=== PATIENT | female | born 1965 | race Caucasian/White ===

== ENCOUNTER 2016-08-26 22:00 | Emergency (ER) | payer SELFPAY ==
[2016-08-26 22:38] VITALS: BP 129/80
[2016-08-26 23:09] LABS: ABSOLUTE BASOPHILS # (AUTO) 0.1 10^3/uL (0.0-0.2); ABSOLUTE EOSINOPHILS # (AUTO) 0.1 10^3/uL (0.0-0.6); ABSOLUTE LYMPHOCYTES (AUTO) 2.2 10^3/uL (0.5-4.7); ABSOLUTE MONOCYTES (AUTO) 0.6 10^3/uL (0.1-1.4); ABSOLUTE NEUT (AUTO) 8.1 10^3/uL (1.7-8.2); BASOPHILS % (AUTO) 0.9 % (0-2); HEMATOCRIT 44.8 % (36.0-47.0); HEMOGLOBIN 15.3 g/dL (12.0-15.5); HGB HCT DIFFERENCE 1.1; LYMPHOCYTES % (AUTO) 19.9 % (13-45); MEAN CORPUSCULAR HEMOGLOBIN 31.3 pg (27.0-33.4); MEAN CORPUSCULAR HGB CONC 34.2 g/dL (32.0-36.0); MEAN CORPUSCULAR VOLUME 91 fl (80-97); MONOCYTES % (AUTO) 5.5 % (3-13); RED CELL DISTRIBUTION WIDTH 12.8 % (11.5-14.0); SEGMENTED NEUTROPHILS % (AUTO) 72.7 % (42-78); WHITE BLOOD COUNT 11.2 10^3/uL (4.0-10.5)
[2016-08-26 23:23] LABS: ALANINE AMINOTRANSFERASE 30 U/L (9-52); ALBUMIN 3.5 g/dL (3.5-5.0); ALKALINE PHOSPHATASE 91 U/L (38-126); ANION GAP 11 (5-19); ASPARTATE AMINO TRANSFERASE 12 U/L (14-36); BILIRUBIN,DIRECT 0.1 mg/dL (0.0-0.4); BILIRUBIN,TOTAL 0.3 mg/dL (0.2-1.3); BLOOD UREA NITROGEN 23 mg/dL (7-20); CALCIUM 9.1 mg/dL (8.4-10.2); CARBON DIOXIDE 32 mmol/L (22-30); CHLORIDE 88 mmol/L (98-107); CREATININE RESULT 0.87 mg/dL (0.52-1.25); POTASSIUM 5.1 mmol/L (3.6-5.0); SODIUM 131.3 mmol/L (137-145); TOTAL PROTEIN 6.4 g/dL (6.3-8.2)
[2016-08-26 23:33] LABS: GLUCOSE 473 mg/dL (75-110)
[2016-08-26] MEDS ORDERED: NORMAL SALINE 1000 ML 1,000 ML IV PRN (23:50)
== END 2016-08-27 03:20 | disposition left against medical advice (07) ==
LOC: ER 22:00
DX: Z53.21 Procedure and treatment not carried out due to patient leaving prior to being seen by health care provider (principal)
CPT/HCPCS: 36415; 80053; 85025

== ENCOUNTER 2016-10-17 10:03 | Emergency (ER) | payer SELFPAY ==
[2016-10-17] MEDS ORDERED: PREDNISONE 20 MG TABLET PO ONE (10:42)
--- NOTE | 2016-10-17 11:00 | ER Document Report ---
ED General - General Mode of Arrival: Wheelchair Information source: Patient TRAVEL OUTSIDE OF THE [place] IN LAST 30 DAYS: No - HPI Onset: Other - REFER to HPI note <MESHA FORTE - Last Filed: 10/17/16 15:30> <[email or web address] - Last Filed: 10/18/16 14:46> - General Chief Complaint: Nausea/Vomiting Stated Complaint: VOMITING Notes: Patient is a 51 year old female presenting to the emergency department for nausea, vomiting and bilateral ulcers to her feet. Patient had a partial amputation to her right toe 6 weeks ago which was done by Dr. Rossy Fabian. Patient had this done at [facility]. Patient has had these ulcers onset about 2 months ago. Patient has type 1 diabetes mellitus. Patient' s last A1C was 11. Patient states she is having difficulty with insulin resistance. Patient sees Dr. Luke for her diabetes. Patient states she has been told by Dr. Fabian that she needed to eventually needs to have surgery on the rest of her ulcers. Patient has no known allergies. (MESHA FORTE) - Related Data Allergies/Adverse Reactions: No Known Allergies Allergy (Verified 10/17/16 10:26) Past Medical History - General Information source: Patient - Social History Smoking Status: Current Some Day Smoker Chew tobacco use (# tins/day): No Frequency of alcohol use: None Drug Abuse: None Family History: DM, Hypertension Patient has suicidal ideation: No Patient has homicidal ideation: No - Past Medical History Cardiac Medical History: Reports: Hx Hypertension Endocrine Medical History: Reports: Hx Diabetes Mellitus Type 2 GI Medical History: Reports: Hx Gastroesophageal Reflux Disease Skin Medical History: Reports Hx Cellulitis, Reports Hx MRSA Psychiatric Medical History: Reports: Hx Depression Past Surgical History: Reports: Hx Section, Hx Cholecystectomy, Hx Hysterectomy - BLT 20 years ago, Hx Tubal Ligation - Immunizations Immunizations up to date: Yes Hx Diphtheria, Pertussis, Tetanus Vaccination: Yes <MESHA FORTE - Last Filed: 10/17/16 15:30> Review of Systems - Review of Systems Constitutional: No symptoms reported EENT: No symptoms reported Cardiovascular: No symptoms reported Respiratory: No symptoms reported Gastrointestinal: See HPI, Nausea, Vomiting Genitourinary: No symptoms reported Female Genitourinary: No symptoms reported Musculoskeletal: No symptoms reported Skin: See HPI Hematologic/Lymphatic: No symptoms reported Neurological/Psychological: No symptoms reported -: Yes All other systems reviewed and negative <MESHA FORTE - Last Filed: 10/17/16 15:30> Physical Exam - Vital signs Interpretation: Normal - General General appearance: Appears well, Alert In distress: Mild - HEENT Head: Normocephalic, Atraumatic Eyes: Normal Pupils: PERRL Mucous membranes: Moist - Respiratory Respiratory status: No respiratory distress Chest status: Nontender Breath sounds: Normal Chest palpation: Normal - Cardiovascular Rhythm: Regular Heart sounds: Normal auscultation Murmur: No - Abdominal Inspection: Normal Distension: No distension Bowel sounds: Normal Tenderness: Nontender Organomegaly: No organomegaly - Extremities General lower extremity: Other - multiple ulcerations and open sores to the bilateral toes, no sign of cellulitis, necrosis, or crepitis - Neurological Neuro grossly intact: Yes Cognition: Normal Orientation: AAOx4 [place] Coma Scale Eye Opening: Spontaneous [place] Coma Scale Verbal: Oriented [place] Coma Scale Motor: Obeys Commands [place] Coma Scale Total: 15 Speech: Normal Sensory: Normal - Psychological Associated symptoms: Normal affect, Normal mood - Skin Skin Temperature: Warm Skin Moisture: Dry <MESHA FORTE - Last Filed: 10/17/16 15:30> <JAMEL SAUNDERS - Last Filed: 10/18/16 14:46> - Vital signs Vitals: Temp Pulse Resp BP Pulse Ox 97.6 F 96 20 143/92 H 97 10/17/16 11:02 10/17/16 11:02 10/17/16 11:02 10/17/16 11:02 10/17/16 11:02 Course - Laboratory Result Diagrams: 10/17/16 10:44 10/17/16 10:44 <MESHA FORTE - Last Filed: 10/17/16 15:30> - Laboratory Result Diagrams: 10/17/16 10:44 10/17/16 10:44 <JAMEL SAUNDERS - Last Filed: 10/18/16 14:46> - Re-evaluation Re-evalutation: 10/17/16 19:00 Presents emergency department for nausea and foot ulcerations that are not healing. She was seen and evaluated and had a partial amputation done on the left toe about 3 weeks ago and one provided doctors. She states that he told her at that time that she would require further amputation send her home on pain medication and antibiotics but has not planned any additional surgery. She is here now stating that the ulcers are not healing and that she has increasing pain and she is out of her medication. On examination she has multiple ulcerations of the bilateral feet amputation site is clean dry and intact she is not taking good care of the wounds. She has several ulcerations to the tips of her toes bilaterally. There is no active abscess crepitus necrosis necrotizing fasciitis or gangrene. There is also no obvious cellulitis to the area. This point my recommendation was to do laboratory evaluation x-ray and contact her surgeon. Patient stated that point that she did not want to go through all of that and she changed her mind and just wanted to go directly and see her surgeon in [facility] which is 30 minutes away. I asked her if she went to get the x-ray labs and then take that with her she declined that. After she wanted me to contact her surgeon she also declined that. He is medically stable but I would have preferred to do the workup here and contact her surgeon. At this point she is discharged to go directly to her surgeon's office and discuss specific reasons for ED return sooner. That she will be driving their herself from unable to give her any medications (JAMEL SAUNDERS) - Vital Signs Vital signs: Temp Pulse Resp BP Pulse Ox 97.6 F 96 20 143/92 H 97 10/17/16 11:02 10/17/16 11:02 10/17/16 11:02 10/17/16 11:02 10/17/16 11:02 - Laboratory Laboratory results interpreted by me: 10/17/16 10/17/16 10/17/16 10:36 10:44 10:44 WBC 10.7 H RBC 5.39 H Hgb 16.9 H Hct 48.6 H Seg Neutrophils % 81.8 H Absolute Neutrophils 8.7 H Sodium 134.8 L Chloride 87 L Carbon Dioxide 35 H Glucose 337 H POC Glucose 317 H Discharge <MESHA FORTE - Last Filed: 10/17/16 15:30> <JAMEL SAUNDERS - Last Filed: 10/18/16 14:46> - Discharge Clinical Impression: nonhealing foot ulcers, Recent amputation left toe Condition: Stable Disposition: HOME, SELF-CARE Additional Instructions: Diabetes poorly controlled You have an abnormally high blood sugar, suspicious for diabetes. Not all high blood sugar requires long-term treatment. High blood sugar can be due to medications, , or the stress of illness. (These cases are "borderline diabetes.") If the doctor feels your high blood sugar might get better with time, you may not require treatment now. You will be scheduled for further evaluation. It's very important that you follow through. Uncontrolled high blood sugar leads to early heart disease , strokes, nerve damage, eye damage, and kidney damage. All diabetics should follow a diet designed to control the blood sugar. Overweight diabetics should exercise regularly and lose weight. If this is not sufficient to control the blood sugar, pills or insulin shots are necessary. Younger people who develop diabetes almost always require insulin daily. Home testing of blood sugars or urine sugar is required. Diabetic teaching is available to help you figure insulin doses and monitor the blood sugar. Call the physician if there is faintness, excess sleepiness, or very rapid breathing. If hypoglycemia (LOW blood sugar) develops, symptoms are shakiness, weakness, sweating, and confusion. In this case, you should eat or drink something with sugar at once. non healing foot ulcers with recent amputation. Go directly to Dr. Hayder Pratt's office advisement in [place] to have a follow-up appointment today as this is the physician that did your surgery 3 weeks ago return for increasing worsening or new symptoms Scribe Attestation: 10/17/16 11:02 I personally performed the services described in the documentation reviewed the documentation recorded by my scribe in my presence and it accurately and completely records my words and actions (JAMEL SAUNDERS) Scribe Documentation - Scribe Written by Sheba:: Sheba Kaur 10/17/16 1530 acting as scribe for :: Nicky <MESHA FORTE - Last Filed: 10/17/16 15:30>
[2016-10-17 11:03] VITALS: BP 143/92
[2016-10-17 11:03] LABS: ABSOLUTE EOSINOPHILS # (AUTO) 0.1 10^3/uL (0.0-0.6); ABSOLUTE LYMPHOCYTES (AUTO) 1.4 10^3/uL (0.5-4.7); ABSOLUTE MONOCYTES (AUTO) 0.4 10^3/uL (0.1-1.4); ABSOLUTE NEUT (AUTO) 8.7 10^3/uL (1.7-8.2); BASOPHILS % (AUTO) 0.4 % (0-2); EOSINOPHILS % (AUTO) 0.9 % (0-6); HEMATOCRIT 48.6 % (36.0-47.0); HEMOGLOBIN 16.9 g/dL (12.0-15.5); HGB HCT DIFFERENCE 2.1; LYMPHOCYTES % (AUTO) 13.2 % (13-45); MEAN CORPUSCULAR HEMOGLOBIN 31.4 pg (27.0-33.4); MEAN CORPUSCULAR HGB CONC 34.8 g/dL (32.0-36.0); MEAN CORPUSCULAR VOLUME 90 fl (80-97); MONOCYTES % (AUTO) 3.7 % (3-13); RED BLOOD COUNT 5.39 10^6/uL (3.72-5.28); RED CELL DISTRIBUTION WIDTH 12.9 % (11.5-14.0); SEGMENTED NEUTROPHILS % (AUTO) 81.8 % (42-78); WHITE BLOOD COUNT 10.7 10^3/uL (4.0-10.5)
[2016-10-17 11:16] LABS: ALANINE AMINOTRANSFERASE 29 U/L (9-52); ALBUMIN 4.2 g/dL (3.5-5.0); ALKALINE PHOSPHATASE 126 U/L (38-126); ANION GAP 13 (5-19); ASPARTATE AMINO TRANSFERASE 14 U/L (14-36); BILIRUBIN,DIRECT 0.3 mg/dL (0.0-0.4); BILIRUBIN,TOTAL 0.7 mg/dL (0.2-1.3); BLOOD UREA NITROGEN 10 mg/dL (7-20); CALCIUM 9.6 mg/dL (8.4-10.2); CARBON DIOXIDE 35 mmol/L (22-30); CHLORIDE 87 mmol/L (98-107); CREATININE RESULT 0.79 mg/dL (0.52-1.25); GLUCOSE 337 mg/dL (75-110); POTASSIUM 4.4 mmol/L (3.6-5.0); SODIUM 134.8 mmol/L (137-145); TOTAL PROTEIN 8.2 g/dL (6.3-8.2)
== END 2016-10-17 11:23 | disposition home or self-care (01) ==
LOC: ER 10:03
DX: L97.523 Non-pressure chronic ulcer of other part of left foot with necrosis of muscle (principal); L97.513 Non-pressure chronic ulcer of other part of right foot with necrosis of muscle; Z89.421 Acquired absence of other right toe(s); R11.2 Nausea with vomiting, unspecified; E10.9 Type 1 diabetes mellitus without complications; I10 Essential (primary) hypertension; K21.9 Gastro-esophageal reflux disease without esophagitis; F17.200 Nicotine dependence, unspecified, uncomplicated; Z86.14 Personal history of Methicillin resistant Staphylococcus aureus infection; Z90.49 Acquired absence of other specified parts of digestive tract; Z90.710 Acquired absence of both cervix and uterus
CPT/HCPCS: 36415; 80053; 82962; 85025; 99283